=== PATIENT | male | born 1975 | race Caucasian/White ===

== ENCOUNTER 2024-07-09 20:29 | Emergency (ER) | payer BC, SELFPAY ==
--- NOTE | ~2024-07-09 | XR_ITS ---
XR finger 1st LT min 2V Ordering provider: Brit Machado APRN History: . puncture wound . Comparison: None. FINDINGS: BONES: No acute fracture or dislocation. JOINT SPACES: Normal. SOFT TISSUES: Normal. IMPRESSION: No acute osseous abnormality. Reviewed, dictated and finalized at location A.
--- NOTE | ~2024-07-09 | XR_ITS ---
XR finger 5th RT min 2V Ordering provider: Brit Machado APRN History: . puncture wound . Comparison: None. FINDINGS: BONES: Highly suggestive Fracture involving the tuft of the distal phalanx of the little finger is no chitra. Surrounding cast is seen. JOINT SPACES: Normal. SOFT TISSUES: Soft tissue swelling over the distal phalanx of the little finger. IMPRESSION: Highly suggestive Fracture in the distal end of the distal phalanx of the little finger. Follow-up ad vised. Reviewed, dictated and finalized at location A. IMPRESSION: Highly suggestive Fracture in the distal end of the distal phalanx of the littl e finger. Follow-up advised.
[2024-07-09 20:42] VITALS: BP 103/68; PULSE 89; RESP 19; TEMP 36.7; O2SAT 98
[2024-07-09] MEDS: HYDROcodone/acetaminophen (*CRX) 5-325 MG TABLET 1 TAB PO ×2 (21:56→23:01)
[2024-07-09] MEDS: TETANUS,DIPHTHERIA,AC PERTUSSIS ADULT (0.5 ML) BOOSTRIX IM (21:59)
--- NOTE | 2024-07-09 23:52 | ED.ANIMALBIT ---
HPI - Animal Bite General Chief Complaint: Animal Bite Stated Complaint: dog bite Time Seen by Provider: 07/09/24 20:43 Source: patient Mode of arrival: ambulatory Limitations: no limitations History of Present Illness HPI narrative: Patient is a 49-year-old male who presents to the ER after dog bite. He reports that the dog is a vaccinated foster pet. Patient reports his dog in foster dog got into altercation. He and his daughter tried to separate the dogs when they were both bit. Patient has puncture wounds to his right pinky finger and left thumb. The right pinky finger continues to bleed even as patient puts pressure on it. He reports he is unsure when he last received a tetanus vaccine. Patient denies other medical conditions relevant to this ER visit. Related Data Allergies Allergy/AdvReac Type Severity Reaction Status Date / Time Cephalosporins Allergy Unknown Unknown Verified 07/09/24 20:40 cefaclor Allergy Unknown Verified 07/09/24 20:40 Review of Systems Review of Systems: All systems reviewed & are unremarkable except as noted in HPI and below Exam Narrative: GENERAL: Well appearing, well-nourished, non-toxic, in mild distress d/t pain. RESPIRATORY: Airway patent, respirations nonlabored. Clear to auscultation bilaterally, no rales, rhonchi, wheezing. CARDIOVASCULAR: Regular rate and rhythm without murmurs, rubs, or gallops. Peripheral pulses 2+ and equal bilaterally. MUSCULOSKELETAL: Moves all extremities. Strength/ROM intact. Deformity noted on 5th digit of L hand. SKIN: Pt has a puncture wound on his R thumb. His L pinky (5th digit) fingernail was avulsed. Pt has a puncture wound on the anterior side of his L 5th digit. The L 5th digit avulsion continues to ooze moderate amounts of blood from the site. PSYCHIATRIC: Appropriate mood and affect. Normal interaction. Course Vital Signs Vital signs: Vital Signs Temperature 36.7 C 07/09/24 20:42 Pulse Rate 89 07/09/24 20:42 Respiratory Rate 19 07/09/24 20:42 Blood Pressure 103/68 07/09/24 20:42 Pulse Oximetry 98 07/09/24 20:42 Oxygen Delivery Room Air 07/09/24 20:42 Temperature 36.7 C 07/09/24 20:42 Pulse Rate 81 09/14/24 00:23 Respiratory Rate 16 07/10/24 00:23 Blood Pressure 120/77 07/10/24 00:23 Pulse Oximetry 100 07/10/24 00:23 Oxygen Delivery Room Air 07/09/24 20:42 MDM - Animal Bite MDM Narrative Medical decision making narrative: Patient is a 49-year-old male who presents to the ER after dog bite. He reports that the dog is a vaccinated foster pet. Patient reports his dog in foster dog got into altercation. He and his daughter tried to separate the dogs when they were both bit. Patient has puncture wounds to his right pinky finger and left thumb. The right pinky finger continues to bleed even as patient puts pressure. He reports he is unsure when he last received a tetanus vaccine. Patient denies other medical conditions relevant to this ER visit. Upon examination pt has a puncture wound on his R thumb. His L pinky (5th digit) fingernail was avulsed. Pt has a puncture wound on the anterior side of his L 5th digit. The L 5th digit avulsion continues to ooze moderate amounts of blood from the site. Will x-ray both sites to ensure patient does not have any fractures and will treat pt's pain with [place]. Pt will also receive a Tdap vaccine. After [place] administration the patient continues to left 5th digit. Will give patient another [place] and perform a digital block at the base of his 5th digit. Upon x-ray it was noted that patient a fracture in the distal portion of his fifth digit. Plastic surgery at [facility] was consulted. They advised pt be given a dose of Unasyn in the ER, then discharged with 7 days of Augmentin. Pt should follow-up with them in a week. Pt continues to complain of pain. Will give him Dilaudid 0.5mg IV and Toradol 15mg IV. Pt's L 5th digit continues to ooze so [employer] will
[2024-07-10 00:23] VITALS: BP 120/77; PULSE 81; RESP 16; O2SAT 100
[2024-07-10] MEDS: AMPICILLIN SULB 3 GM/NS 100 ML 3 GM/100 ML VIAL IVPB (00:25)
[2024-07-10] MEDS: HYDROmorphone HCL INJ (*CRX) 1 MG/ML SYR 0.5 MG IV PUSH (01:31)
[2024-07-10] MEDS: KETOROLAC 15 MG/ML VIAL (*BKC) IV PUSH (01:31)
== END 2024-07-10 03:30 | disposition home or self-care (01) ==
PROVIDERS: Emergency Provider Registered Nurse; PCP Family Medicine
DX: S61.256A Open bite of right little finger without damage to nail, initial encounter (principal); S61.052A Open bite of left thumb without damage to nail, initial encounter; Z23 Encounter for immunization; W54.0XXA Bitten by dog, initial encounter
CPT/HCPCS: 73140; 90471; 90715; 96365; 96375; 99284; A9270; J0295; J1170; J1885